=== PATIENT | male | born 1935 | race Caucasian/White ===

== ENCOUNTER 2017-01-14 01:22 | Inpatient (IN) | payer OTHER ==
[2017-01-14] MEDS ORDERED: VESICARE10 MG PO (02:24)
[2017-01-14] MEDS ORDERED: DONEPEZIL HCL10 MG PO (02:25)
[2017-01-14] MEDS ORDERED: GLIPIZIDE ER10 M1 PO (02:25)
[2017-01-14 05:49] VITALS: BP 166/88
[2017-01-14 07:03] LABS: HEMOGLOBIN A1c 7.1 % (4.8-5.6)
[2017-01-14 07:47] VITALS: BP 130/82
[2017-01-14] MEDS ORDERED: VITAMIN D50000 UNIT PO (13:32)
[2017-01-14 20:00] VITALS: BP 137/72
[2017-01-15 06:56] LABS: BASO % 0.1 % (0.0-1.0); EOS % 0.1 % (1.0-4.0); HEMATOCRIT 45.9 % (42.0-52.0); HEMOGLOBIN 14.9 g/dl (14.0-18.0); IG # 0.1 10*3/uL (0.0-0.1); LYMPH # 0.9 10*3/uL (1.3-4.4); LYMPH % 8.4 % (27.0-41.0); MEAN CELL VOLUME 94.4 fl (80.0-94.0); MEAN CORPUSCULAR HGB 30.7 pg (27.0-31.0); MEAN CORPUSCULAR HGB CONC 32.5 g/dl (33.0-37.0); MEAN PLATELET VOLUME 11.2 fl (9.6-12.3); MONO # 0.5 10*3/uL (0.1-1.0); NEUT # 9.7 10*3/uL (2.3-7.9); PLATELET COUNT AUTOMATED 316 10*3/uL (130-400); RED BLOOD COUNT 4.86 10*6/uL (4.50-5.90); RED CELL DISTRI WIDTH 12.2 % (0-14.5); WHITE BLOOD COUNT 11.2 10*3/uL (4.8-10.8)
[2017-01-15 07:13] LABS: POTASSIUM 4.8 mmol/L (3.5-5.1)
[2017-01-15 08:06] VITALS: BP 132/80
[2017-01-15 20:22] VITALS: BP 153/74
[2017-01-16 08:55] VITALS: BP 102/64
[2017-01-16 20:00] VITALS: BP 140/82
[2017-01-17 08:06] VITALS: BP 127/71
[2017-01-17 16:45] VITALS: BP 129/89
[2017-01-18 08:02] VITALS: BP 142/83
[2017-01-18 20:00] VITALS: BP 146/83
[2017-01-19 08:14] VITALS: BP 133/84
== END 2017-01-19 14:15 | disposition left against medical advice (07) | DRG 57 ==
LOC: 3N 01:22
PROVIDERS: Family Medicine; Nurse Practitioner Adult Health
DX: G30.9 Alzheimer's disease, unspecified (principal); F02.81 Dementia in other diseases classified elsewhere, unspecified severity, with behavioral disturbance; E11.9 Type 2 diabetes mellitus without complications; F23 Brief psychotic disorder; E55.9 Vitamin D deficiency, unspecified; N32.81 Overactive bladder; Z79.4 Long term (current) use of insulin